=== PATIENT | female | born 1950 | race Caucasian/White ===

== ENCOUNTER 2016-12-08 10:24 | Emergency (ER) | payer MEDICAID ==
[~2016-12-08] VITALS: Ht 152.4 cm; Wt 63.0 kg
[2016-12-08] MEDS ORDERED: ACETAMINOPHEN WITH CODEINE 300/30MG TABLET PO ONE (13:30)
[2016-12-08 13:43] VITALS: BP 142/63
== END 2016-12-08 13:44 | disposition home or self-care (01) ==
LOC: ER 11:42
DX: B02.9 Zoster without complications (principal); M54.5 Low back pain; E11.9 Type 2 diabetes mellitus without complications
CPT/HCPCS: 99283

== ENCOUNTER 2017-01-05 08:14 | Emergency (ER) | payer MEDICAID ==
[~2017-01-05] VITALS: Ht 149.9 cm; Wt 71.0 kg
[2017-01-05] MEDS ORDERED: SODIUM CHLORIDE 0.9% 1,000 ML IV ONE (11:02)
[2017-01-05] MEDS ORDERED: FAMOTIDINE 20MG/2ML VIAL IV STA (11:02)
[2017-01-05] MEDS ORDERED: MAGNESIUM/ALUMINUM HYDROXIDE/SIMETHICONE 30ML UDC PO STA (11:02)
[2017-01-05 11:17] LABS: BASOPHILS % 0.8 % (0.0-2.0); HEMATOCRIT. 39.5 % (36.0-48.0); HEMOGLOBIN. 13.7 g/dL (12.0-16.0); LYMPHOCYTES % 25.6 % (20.0-50.0); MEAN CORPUSCULAR HEMOGLOBIN 31.4 pg (28.0-32.0); MEAN CORPUSCULAR HGB CONC 34.7 g/dL (31.0-37.0); MEAN CORPUSCULAR VOLUME 90.5 fL (81.0-99.0); MEAN PLATELET VOLUME 9.7 fl (7.4-10.4); MONOCYTES % 4.7 % (2.0-8.0); NEUTROPHILS % 67.9 % (40.0-76.0); PLATELET 204 x1000/uL (130-400); RED BLOOD CELL COUNT 4.37 mill/uL (4.2-5.4); RED CELL DISTRIBUTION WIDTH 13.7 % (11.6-14.6); WHITE BLOOD COUNT 9.1 x1000/uL (4.5-11.0)
[2017-01-05 11:24] LABS: INR 1.1
[2017-01-05 11:34] LABS: ALANINE AMINOTRANSFERASE 31 IU/L (13-61); ALBUMIN 3.4 g/dL (3.4-5.0); ANION GAP 11; CALCIUM 9.3 mg/dL (8.5-10.1); CARBON DIOXIDE 28 mEq/L (21-32); CHLORIDE 104 mEq/L (98-107); CREATINE KINASE 71 IU/L (26-192); CREATINE KINASE MB FRACTION < 0.5 ng/mL (0.5-3.6); INDEX HEMOLYSI 1 (1-3); INDEX ICTERIC 1 (1-4); INDEX LIPEMIC 1 (1-3); LIPASE 159 IU/L (73-393); NT PRO B-TYPE NATRIURETIC PEP 114 pg/mL (5-125); TROPONIN I < 0.02 ng/mL (0.00-0.04); UREA NITROGEN BLOOD 13 mg/dL (7-21); eGFR > 60 mL/min (>60)
[2017-01-05 12:59] LABS: CLARITY URINE CLEAR (CLEAR); COLOR URINE YELLOW (YELLOW); GLUCOSE URINE NEGATIVE (NEGATIVE); KETONES URINE NEGATIVE (NEGATIVE); LEUKOCYTE ESTERASE URINE TRACE (NEGATIVE); NITRITE URINE NEGATIVE (NEGATIVE); OCCULT BLOOD URINE NEGATIVE (NEGATIVE); PROTEIN URINE NEGATIVE (NEGATIVE); SPECIFIC GRAVITY URINE 1.006 (1.005-1.030); UROBILINOGEN URINE 0.2 E.U./dL (0.2-1.0)
[2017-01-05 13:38] LABS: BACTERIA URINE 2+; RBC URINE 0-2 /hpf (0-2); SQUAMOUS EPITHELIAL CELL URINE 2+ /lpf (RARE/1+)
[2017-01-05 16:04] VITALS: BP 123/73
== END 2017-01-05 16:10 | disposition home or self-care (01) ==
LOC: ER 10:10 → EDBD 10:10 → ER 16:10
DX: R10.13 Epigastric pain (principal); E11.9 Type 2 diabetes mellitus without complications; Z98.890 Other specified postprocedural states
CPT/HCPCS: 36415; 71020; 74177; 80053; 81001; 82550; 82553; 83690; 83880; 84484; 85025; 85610; 93005; 96361; 96374; 99285; J3490; J7030; Z7610